=== PATIENT | male | born 1965 | race Caucasian/White ===

== ENCOUNTER 2017-09-07 22:24 | Emergency (ER) | payer OTHER, SELFPAY ==
[2017-09-07 22:44] LABS: #Basophils 0.1 thou/uL (0.0-0.2); #Eosinphils 0.2 thou/uL (0.0-0.7); #Lymphocytes 2.9 thou/uL (1.20-3.40); #Monocytes 0.7 thou/uL (0.11-0.59); %Basophils 0.5 % (0.0-1.0); %Eosinophils 1.9 % (0.0-10.0); %Lymphocytes 26.5 % (21.0-51.0); %Monocytes 6.6 % (0.0-10.0); %Neutrophils 64.4 % (42.0-75.0); Hemoglobin 17.2 g/dL (14.0-18.0); Mean Corpuscular HGB CONC 35.1 g/dL (32.0-36.0); Mean Corpuscular Hemoglobin 33.4 pg (27.0-31.0); Mean Corpuscular Volume 95.1 fL (78.0-98.0); Mean Platelet Volume 6.8 fL (7.4-10.4); Platelet Count 290 thou/uL (130-400); RBC Distribution Width 12.5 % (11.5-14.5); Red Blood Cell (RBC) Count 5.15 mill/uL (4.70-6.10); White Blood Cell (WBC) Count 10.9 thou/uL (4.8-10.8)
[2017-09-07 23:10] LABS: ALT (SGPT) 16 U/L (8-55); AST (SGOT) 21 U/L (5-34); Albumin 4.8 g/dL (3.5-5.0); Alkaline Phosphatase 91 U/L (40-150); Anion Gap 18 mmol/L (10-20); BUN (Urea Nitrogen) 20 mg/dL (8.4-25.7); Bilirubin, Total 0.7 mg/dL (0.2-1.2); CK (CPK) 229 U/L (30-200); Calc. Creatinine Clearance 0 mL/min (70-130); Carbon Dioxide 20 mmol/L (22-29); Chloride 104 mmol/L (98-107); Estimated GFR-MDRD 62; Glucose 127 mg/dL (70-105); Potassium 3.8 mmol/L (3.5-5.1); Protein, Total 8.8 g/dL (6.0-8.3); Sodium 138 mmol/L (136-145)
[2017-09-07 23:13] LABS: CKMB 2.3 ng/mL (0-6.6); Troponin I Less than 0.010 ng/mL (< 0.028)
--- NOTE | 2017-09-07 23:16 | RAD ---
PORTABLE CHEST ONE VIEW: 09/07/17 at 9:54 p.m. HISTORY: Dizziness. FINDINGS: Comparison is made with exam of 10/24/15. The heart size is normal. The lungs are well expanded without focal areas of consolidation, pneumotho rax, el pulmonary edema or pleural effusions. IMPRESSION: No radiographic evidence of acute cardiopulmonary process. POS: [facility]
[2017-09-07 23:17] LABS: Magnesium 2.4 mg/dL (1.6-2.6)
[2017-09-07 23:36] LABS: Acetaminophen Less than 6.0 mcg/mL (10.0-30.0); Alcohol Less than 10 mg/dL (Less than 10); Salicylate Less than 8.0 mg/dL (15.0-30.0)
[2017-09-07 23:37] LABS: Bilirubin Negative (Negative); Blood, Urine Negative (Negative); Clarity CLEAR (Clear); Glucose, Urine (Dipstick) Negative (Negative); Leukocyte Small (Negative); Nitrite Negative (Negative); Protein, Urine (Dipstick) Negative (Neg-Trace); pH, Urine 5.5 (5.0-9.0)
[2017-09-07 23:40] LABS: Bacteria/HPF None Seen HPF (None Seen); Hyaline Casts/LPF 0-3 HYALINE CAST LPF (0-3 Hyaline); Pathc Cast-AUWi Flag 0.72 (0-2.49); RBC/HPF 0-3 HPF (0-3); Squamous Epithelial 0-3 HPF (0-3)
[2017-09-07 23:47] LABS: Amphetamine Not Detected (NotDetected); Barbiturates Screen Not Detected (NotDetected); Benzodiazepine Screen Not Detected (NotDetected); Cocaine Metabolite Screen Not Detected (NotDetected); Medtox Control Line Valid? VALID (VALID); Medtox Reader # READER 4; Methadone Not Detected (NotDetected); Methamphetamine Not Detected (NotDetected); Opiate Screen Not Detected (NotDetected); Oxycodone Screen Not Detected (NotDetected); Phencyclidine (PCP) Not Detected (NotDetected); THC/Cannabinoid Screen Detected (NotDetected); Tricyclic Screen Not Detected (NotDetected)
[2017-09-08] MEDS ORDERED: Acetaminophen 500 MG TAB ONE (00:59)
[2017-09-08 01:50] LABS: Free T4 (Free Thyroxine) 0.99 ng/dL (0.70-1.48)
[2017-09-08] MEDS ORDERED: Ketorolac Tromethamine 30 MG/ML VIAL ONE (02:00)
== END 2017-09-08 02:15 | disposition home or self-care (01) ==
LOC: ERS 22:24
DX: N39.0 Urinary tract infection, site not specified (principal); E86.0 Dehydration; E78.5 Hyperlipidemia, unspecified; I10 Essential (primary) hypertension; I25.2 Old myocardial infarction; J45.909 Unspecified asthma, uncomplicated; F41.9 Anxiety disorder, unspecified; F17.220 Nicotine dependence, chewing tobacco, uncomplicated; Z79.82 Long term (current) use of aspirin; Z71.6 Tobacco abuse counseling; Z79.899 Other long term (current) drug therapy
CPT/HCPCS: 71045; 80053; 80306; 80307; 81003; 81015; 82553; 83690; 83735; 84439; 84443; 84481; 84484; 85025; 85379; 87086; 93005; 94760; 96374; 99406; J1885

== ENCOUNTER 2017-09-09 14:13 | Emergency (ER) | payer SELFPAY ==
[2017-09-09 16:16] LABS: #Eosinphils 0.2 thou/uL (0.0-0.7); #Lymphocytes 1.7 thou/uL (1.20-3.40); #Monocytes 0.4 thou/uL (0.11-0.59); #Neutrophils 4.2 thou/uL (1.40-6.50); %Basophils 0.7 % (0.0-1.0); %Eosinophils 2.6 % (0.0-10.0); %Lymphocytes 25.4 % (21.0-51.0); %Monocytes 6.3 % (0.0-10.0); %Neutrophils 65.1 % (42.0-75.0); Hemoglobin 14.5 g/dL (14.0-18.0); Mean Corpuscular HGB CONC 34.6 g/dL (32.0-36.0); Mean Corpuscular Hemoglobin 33.7 pg (27.0-31.0); Mean Corpuscular Volume 97.4 fL (78.0-98.0); Mean Platelet Volume 7.2 fL (7.4-10.4); Platelet Count 205 thou/uL (130-400); RBC Distribution Width 12.3 % (11.5-14.5); White Blood Cell (WBC) Count 6.5 thou/uL (4.8-10.8)
--- NOTE | 2017-09-09 16:24 | RAD ---
PORTABLE UPRIGHT FRONTAL CHEST RADIOGRAPH: Date: 09-09-17 Comparison: 09-07-17 History: Weakness, collapse, shortness of breath. FINDINGS: Lungs are clear. Heart and mediastinal contours are unremarkable. Osseous structures demonstrate no a cute findings. IMPRESSION: No acute findings. POS: [facility]
[2017-09-09 16:36] LABS: Acetaminophen Less than 6.0 mcg/mL (10.0-30.0); Alcohol Less than 10 mg/dL (Less than 10); Salicylate Less than 8.0 mg/dL (15.0-30.0)
[2017-09-09 16:41] LABS: ALT (SGPT) 14 U/L (8-55); AST (SGOT) 17 U/L (5-34); Albumin 4.1 g/dL (3.5-5.0); Alkaline Phosphatase 77 U/L (40-150); Anion Gap 10 mmol/L (10-20); BUN (Urea Nitrogen) 16 mg/dL (8.4-25.7); Bilirubin, Total 0.4 mg/dL (0.2-1.2); Calc. Creatinine Clearance 0 mL/min (70-130); Carbon Dioxide 24 mmol/L (22-29); Chloride 107 mmol/L (98-107); Estimated GFR-MDRD 89; Globulin 2.8 g/dL (2.4-3.5); Glucose 103 mg/dL (70-105); Magnesium 2.2 mg/dL (1.6-2.6); Potassium 4.3 mmol/L (3.5-5.1); Protein, Total 6.9 g/dL (6.0-8.3); Sodium 137 mmol/L (136-145)
[2017-09-09 16:45] LABS: CKMB 1.7 ng/mL (0-6.6); Troponin I Less than 0.010 ng/mL (< 0.028)
[2017-09-09] MEDS ORDERED: Metoclopramide HCl 10 MG/2 ML VIAL ONE (16:52)
[2017-09-09] MEDS ORDERED: diphenhydrAMINE 50 MG/ML VIAL ONE (16:52)
[2017-09-09] MEDS ORDERED: Ketorolac Tromethamine 30 MG/ML VIAL ONE (16:52)
[2017-09-09 19:03] LABS: Bilirubin Negative (Negative); Blood, Urine Negative (Negative); Clarity CLEAR (Clear); Glucose, Urine (Dipstick) Negative (Negative); Leukocyte Negative (Negative); Nitrite Negative (Negative); Protein, Urine (Dipstick) Negative (Neg-Trace); Specific Gravity, Urine 1.016 (1.002-1.036); pH, Urine 7.5 (5.0-9.0)
== END 2017-09-09 19:03 | disposition home or self-care (01) ==
LOC: ERS 14:13
DX: E86.0 Dehydration (principal); E78.5 Hyperlipidemia, unspecified; I10 Essential (primary) hypertension; I25.2 Old myocardial infarction; J45.909 Unspecified asthma, uncomplicated; F41.9 Anxiety disorder, unspecified; F17.290 Nicotine dependence, other tobacco product, uncomplicated; Z79.82 Long term (current) use of aspirin; Z79.899 Other long term (current) drug therapy
CPT/HCPCS: 36415; 71045; 80053; 80307; 81003; 82553; 83735; 84484; 85025; 87086; 93005; 96365; 96366; 96375; J1200; J1885; J1956; J2765

== ENCOUNTER 2018-12-10 21:00 | Emergency (ER) | payer SELFPAY ==
[2018-12-10] MEDS ORDERED: Acetaminophen 500 MG TAB ONE (22:53)
[2018-12-10] MEDS ORDERED: Adacel (T-DAP) 0.5 ML SYRINGE ONE (23:23)
[2018-12-10] MEDS ORDERED: Lidocaine 1% w/Epinephrine 1:100K 20 ML VIAL ONE (23:23)
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
[2018-12-11] MEDS ORDERED: Triple Antibiotic Oint 1 GM Packet ONE (00:06)
== END 2018-12-11 00:15 | disposition home or self-care (01) ==
LOC: ERS 21:00
DX: S01.81XA Laceration without foreign body of other part of head, initial encounter (principal); E78.5 Hyperlipidemia, unspecified; I10 Essential (primary) hypertension; I25.2 Old myocardial infarction; F41.9 Anxiety disorder, unspecified; F17.210 Nicotine dependence, cigarettes, uncomplicated; Z79.82 Long term (current) use of aspirin; Z79.899 Other long term (current) drug therapy; W22.8XXA Striking against or struck by other objects, initial encounter
CPT/HCPCS: 12011; 70450; 90471; 90715; J2001

== ENCOUNTER 2024-02-01 06:44 | Inpatient (IN) | payer SELFPAY ==
[2024-02-01 09:10] VITALS: BMI 30.3
[2024-02-01] MEDS ORDERED: Nitroglycerin 50 MG/250 ML BOT 250 ML IVPB PRN (09:49)
[2024-02-01] MEDS ORDERED: Electrolyte Replacement Protocol 1 EACH IVPB SCH (09:49)
[2024-02-01] MEDS ORDERED: Electrolyte Replacement Protocol FS PRN (10:30)
[2024-02-01 10:48] LABS: Troponin I 0.117 ng/mL (< 0.028)
[2024-02-01] MEDS: Nicotine 14 MG PATCH TD SCH (11:01)
[2024-02-01] MEDS: FLU (Fluarix Triv) TS24-25(6MOS UP)/PF 45 MCG/0.5 ML Syringe IM ONE (11:02)
[2024-02-01] MEDS: Ondansetron PF 4 MG/2 ML Vial IVP PRN (11:02)
[2024-02-01] MEDS: Lactated Ringer's 1,000 ML IV SCH (11:45)
[2024-02-01] MEDS: Atorvastatin Calcium 40 MG TAB PO SCH (11:57)
[2024-02-01] MEDS: Clopidogrel Bisulfate 75 MG TAB PO SCH (11:58)
[2024-02-01] MEDS: Acetaminophen 325 MG TAB PO PRN (11:59)
[2024-02-01] MEDS: Pantoprazole 40 MG VIAL IVP SCH (11:59)
[2024-02-01 13:46] LABS: Troponin I 0.101 ng/mL (< 0.028)
[2024-02-01 16:43] VITALS: BP 173/97; TEMP 97.7
[2024-02-01] MEDS ORDERED: Amlodipine 5 MG TAB PO SCH (21:00)
[2024-02-02] MEDS ORDERED: Pantoprazole 40 MG VIAL IVP SCH (09:00)
[2024-02-02] MEDS ORDERED: Losartan 25 MG TAB PO SCH (09:00)
[2024-02-02] MEDS ORDERED: Aspirin 81 mg Enteric Coated Tablet PO SCH (09:00)
[2024-02-02] MEDS ORDERED: Clopidogrel Bisulfate 75 MG TAB PO SCH (09:00)
== END 2024-02-01 17:46 | disposition home or self-care (01) | DRG 282 ==
LOC: CCU 08:52 → PCU 13:54
PROVIDERS: ADMIT Student in an Organized Health Care Education/Training Program; ATTEND Student in an Organized Health Care Education/Training Program
DX: I21.4 Non-ST elevation (NSTEMI) myocardial infarction (principal); F17.220 Nicotine dependence, chewing tobacco, uncomplicated; I10 Essential (primary) hypertension; I25.10 Atherosclerotic heart disease of native coronary artery without angina pectoris; E78.5 Hyperlipidemia, unspecified; M19.90 Unspecified osteoarthritis, unspecified site; F41.9 Anxiety disorder, unspecified; R00.1 Bradycardia, unspecified; E66.9 Obesity, unspecified; G89.29 Other chronic pain; Z95.5 Presence of coronary angioplasty implant and graft; Z88.5 Allergy status to narcotic agent; Z88.2 Allergy status to sulfonamides; Z79.82 Long term (current) use of aspirin; Z79.899 Other long term (current) drug therapy; Z79.891 Long term (current) use of opiate analgesic; Z68.30 Body mass index [BMI] 30.0-30.9, adult; Z79.02 Long term (current) use of antithrombotics/antiplatelets; Z91.141 Patient's other noncompliance with medication regimen due to financial hardship; Z23 Encounter for immunization
CPT/HCPCS: 36415; 71045; 93005; 93010; J2405; J2470

== ENCOUNTER 2024-02-02 05:48 | Inpatient (IN) | payer SELFPAY ==
[2024-02-02 06:41] LABS: #Basophils 0.04 10x3/uL (0.0-0.2); %Basophils 0.5 % (0.0-1.0); %Eosinophils 3.2 % (0.0-10.0); %Lymphocytes 20.5 % (21.0-51.0); %Monocytes 6.2 % (0.0-10.0); Hematocrit 40.5 % (42.0-52.0); Hemoglobin 14.2 g/dL (14.0-18.0); Mean Corpuscular HGB CONC 35.1 g/dL (32.0-36.0); Mean Corpuscular Hemoglobin 33.2 pg (27.0-31.0); Mean Corpuscular Volume 94.6 fL (78.0-98.0); Mean Platelet Volume 9.7 fL (7.4-10.4); Platelet Count 203 10x3/uL (130-400); RBC Distribution Width 13.7 % (11.5-14.5); Red Blood Cell (RBC) Count 4.28 mill/uL (4.70-6.10)
[2024-02-02 06:57] LABS: Anion Gap 13 mmol/L (10-20); BUN (Urea Nitrogen) 7 mg/dL (8.4-25.7); Calc. Creatinine Clearance 0 mL/min (70-130); Calcium 8.7 mg/dL (7.8-10.44); Carbon Dioxide 20 mmol/L (22-29); Chloride 107 mmol/L (98-107); Estimated GFR 102; Glucose 143 mg/dL (70-105); Potassium 3.3 mmol/L (3.5-5.1); Sodium 137 mmol/L (136-145)
[2024-02-02 07:06] LABS: Troponin I 0.592 ng/mL (< 0.028)
[2024-02-02] MEDS ORDERED: Aspirin Chewable 81 MG TAB ONE (07:35)
[2024-02-02] MEDS ORDERED: HYDROmorphone 0.5 MG/0.5 ML SYRINGE ONE (08:06)
[2024-02-02] MEDS ORDERED: Enoxaparin 80 MG (0.8 mL) SYRINGE ONE (08:07)
[2024-02-02] MEDS ORDERED: Ondansetron PF 4 MG/2 ML Vial ONE (08:07)
[2024-02-02] MEDS ORDERED: Enoxaparin 30 MG (0.3 mL) SYRINGE ONE (08:07)
[2024-02-02 08:12] LABS: Lipase 28 U/L (8-78)
[2024-02-02 08:15] LABS: Acetaminophen Less than 10 mcg/mL (Less than 10); Alcohol Less than 10.0 mg/dL (Less than 10); Salicylate Less than 8.0 mg/dL (Less than 8.0)
[2024-02-02] MEDS ORDERED: Nitroglycerin 0.4mg/Hour PATCH ONE (09:23)
[2024-02-02] MEDS ORDERED: Lorazepam 2 MG/ML VIAL ONE (09:52)
[2024-02-02 11:50] VITALS: BMI 29.4
[2024-02-02] MEDS: Acetaminophen 325 MG TAB PO PRN (11:50)
[2024-02-02 13:11] LABS: Troponin I 2.095 ng/mL (< 0.028)
[2024-02-02 15:12] LABS: Troponin I 2.474 ng/mL (< 0.028)
[2024-02-02] MEDS: HYDROcodone/Acetaminophen 5/325 mg Tablet PO PRN (16:55)
[2024-02-02] MEDS ORDERED: Aspirin 81 mg Enteric Coated Tablet PO SCH (18:45)
[2024-02-02] MEDS ORDERED: Communication Order-Pharmacy FS SCH (18:45)
[2024-02-02 19:06] LABS: Troponin I 3.201 ng/mL (< 0.028)
[2024-02-02] MEDS: Amlodipine 5 MG TAB PO SCH (21:19)
[2024-02-02] MEDS: Ondansetron ODT 4 MG TAB PO PRN (21:19)
[2024-02-02] MEDS: Enoxaparin 120 MG/0.8 ML SYRINGE SC SCH (21:19)
[2024-02-02] MEDS: Lidocaine 2% Viscous Solution 20 ML, Aluminum & Magnesium Hydroxide 30 ML, Donnatal Eli... SSW SCH (22:14)
[2024-02-02] MEDS ORDERED: Morphine 4 MG/ML VIAL SLOW IVP SCH (22:15)
[2024-02-02] MEDS: HYDROmorphone 0.5 MG/0.5 ML SYRINGE SLOW IVP SCH (23:09)
[2024-02-02 23:39] LABS: Troponin I 2.825 ng/mL (< 0.028)
[2024-02-03 03:56] LABS: #Basophils 0.03 10x3/uL (0.0-0.2); %Basophils 0.5 % (0.0-1.0); %Eosinophils 2.7 % (0.0-10.0); %Lymphocytes 34.2 % (21.0-51.0); %Monocytes 7.2 % (0.0-10.0); %Neutrophils 54.9 % (42.0-75.0); Hematocrit 43.3 % (42.0-52.0); Hemoglobin 14.3 g/dL (14.0-18.0); Mean Platelet Volume 10.1 fL (7.4-10.4); Platelet Count 175 10x3/uL (130-400); RBC Distribution Width 13.7 % (11.5-14.5); Red Blood Cell (RBC) Count 4.33 mill/uL (4.70-6.10)
[2024-02-03 04:10] LABS: Anion Gap 15 mmol/L (10-20); BUN (Urea Nitrogen) 8 mg/dL (8.4-25.7); Calc. Creatinine Clearance 140 mL/min (70-130); Carbon Dioxide 20 mmol/L (22-29); Chloride 105 mmol/L (98-107); Estimated GFR 100; Glucose 79 mg/dL (70-105); Potassium 3.7 mmol/L (3.5-5.1); Sodium 136 mmol/L (136-145)
[2024-02-03 04:20] LABS: Troponin I 2.222 ng/mL (< 0.028)
[2024-02-03] MEDS: Sodium Chloride 0.9% 1,000 ML IV SCH (06:14)
[2024-02-03] MEDS: Losartan 25 MG TAB PO SCH (06:19)
[2024-02-03] MEDS: Rosuvastatin 10 MG TAB PO SCH (06:19)
[2024-02-03] MEDS: Sertraline 100 MG TAB PO SCH (06:19)
[2024-02-03] MEDS: Aspirin 81 mg Enteric Coated Tablet PO SCH (06:19)
[2024-02-03 07:05] LABS: Critical Call Chem Troponin I RESULT DECREASING; Troponin I 2.111 ng/mL (< 0.028)
[2024-02-03] MEDS ORDERED: Verapamil 5 MG/2 ML VIAL ONE (08:16)
[2024-02-03] MEDS ORDERED: Nitroglycerin 50 MG/250 ML BOT 250 ML ONE (08:16)
[2024-02-03] MEDS ORDERED: Heparin 10,000 UNITS/ 10 ML VIAL ONE (08:16)
[2024-02-03] MEDS: Nitroglycerin 0.4 MG TAB (25 Tab Bottle) SL PRN (10:03)
[2024-02-03 11:22] LABS: Troponin I 1.713 ng/mL (< 0.028)
[2024-02-03] MEDS: HYDROmorphone 0.5 MG/0.5 ML SYRINGE SLOW IVP SCH (11:47)
[2024-02-03] MEDS ORDERED: Midazolam HCl 2 mg/2 ml Vial ONE (12:03)
[2024-02-03] MEDS ORDERED: TICAGRELOR 90 MG TABLET ONE (13:00)
[2024-02-03] MEDS ORDERED: Ondansetron PF 4 MG/2 ML Vial ONE (13:30)
[2024-02-03] MEDS ORDERED: Iopamidol 370 76% 100 ML VIAL ONE (15:09)
[2024-02-03] MEDS: Atorvastatin Calcium 40 MG TAB PO SCH (20:46)
[2024-02-03] MEDS: TICAGRELOR 90 MG TABLET PO SCH (20:46)
[2024-02-04 04:09] LABS: #Basophils Less than 0.03 10x3/uL (0.0-0.2); %Basophils 0.2 % (0.0-1.0); %Eosinophils 2.2 % (0.0-10.0); %Monocytes 7.4 % (0.0-10.0); %Neutrophils 65.9 % (42.0-75.0); Hematocrit 39.8 % (42.0-52.0); Mean Corpuscular HGB CONC 35.2 g/dL (32.0-36.0); Mean Corpuscular Volume 93.9 fL (78.0-98.0); Mean Platelet Volume 9.9 fL (7.4-10.4); Platelet Count 177 10x3/uL (130-400); RBC Distribution Width 13.5 % (11.5-14.5); Red Blood Cell (RBC) Count 4.24 mill/uL (4.70-6.10)
[2024-02-04 04:34] LABS: ALT (SGPT) 12 U/L (8-55); AST (SGOT) 31 U/L (5-34); Albumin 3.8 g/dL (3.5-5.0); Alkaline Phosphatase 102 U/L (40-110); Anion Gap 13 mmol/L (10-20); BUN (Urea Nitrogen) 7 mg/dL (8.4-25.7); Bilirubin, Total 1.3 mg/dL (0.2-1.2); Calc. Creatinine Clearance 143 mL/min (70-130); Calcium 8.8 mg/dL (7.8-10.44); Carbon Dioxide 20 mmol/L (22-29); Chloride 106 mmol/L (98-107); Estimated GFR 100; Globulin 3.1 g/dL (2.4-3.5); Glucose 95 mg/dL (70-105); Potassium 3.3 mmol/L (3.5-5.1); Protein, Total 6.9 g/dL (6.0-8.3); Sodium 136 mmol/L (136-145)
[2024-02-04] MEDS: Potassium Chloride 20 MEQ TAB PO SCH (07:52)
[2024-02-04] MEDS: diphenhydrAMINE 12.5 MG/5 ML UDCUP PO SCH (10:44)
[2024-02-04 11:13] VITALS: BP 122/72; TEMP 98.4
== END 2024-02-04 13:50 | disposition home or self-care (01) | DRG 322 ==
LOC: ERS 05:48 → 2NO 08:28
PROVIDERS: ADMIT Student in an Organized Health Care Education/Training Program; ATTEND Student in an Organized Health Care Education/Training Program
PROC: 4A023N7 Measurement of Cardiac Sampling and Pressure, Left Heart, Percutaneous Approach (ICD-10-PCS; principal; 2024-02-03)
PROC: 027035Z Dilation of Coronary Artery, One Artery with Two Drug-eluting Intraluminal Devices, Percutaneous Approach (ICD-10-PCS; 2024-02-03)
PROC: 02703ZZ Dilation of Coronary Artery, One Artery, Percutaneous Approach (ICD-10-PCS; 2024-02-03)
PROC: B2151ZZ Fluoroscopy of Left Heart using Low Osmolar Contrast (ICD-10-PCS; 2024-02-03)
PROC: B2111ZZ Fluoroscopy of Multiple Coronary Arteries using Low Osmolar Contrast (ICD-10-PCS; 2024-02-03)
DX: I21.4 Non-ST elevation (NSTEMI) myocardial infarction (principal); I25.110 Atherosclerotic heart disease of native coronary artery with unstable angina pectoris; Z88.2 Allergy status to sulfonamides; Z88.8 Allergy status to other drugs, medicaments and biological substances; E78.00 Pure hypercholesterolemia, unspecified; I10 Essential (primary) hypertension; I25.2 Old myocardial infarction; Z98.890 Other specified postprocedural states; F41.9 Anxiety disorder, unspecified; F17.220 Nicotine dependence, chewing tobacco, uncomplicated; Z79.82 Long term (current) use of aspirin; Z79.899 Other long term (current) drug therapy; M19.90 Unspecified osteoarthritis, unspecified site; M48.02 Spinal stenosis, cervical region
CPT/HCPCS: 36415; 71045; 80048; 80053; 80307; 83690; 83880; 84484; 85025; 85347; 92928; 93005; 93010; 93458; 96372; 96374; 96375; 97139; C1725; C1769; C1874; C1887; C1894; C9600; J0780; J1644; J1650; J2060; J2250; J2405; J7030; Q0162; Q0163; Q9967